=== PATIENT | female | born 1990 | race American Indian/Alaskan Native ===

== ENCOUNTER 2018-11-05 14:15 | Emergency (ER) | payer MEDICAID, OTHER ==
--- NOTE | 2018-11-05 14:52 | Emergency Department Report ---
Blank Doc - Documentation Documentation: This is a 28-year-old female that presents with pelvic pain x3 days. Stated had surgery liposuction 10 days ago. Denies pain at the incision site. Denies any nausea or vomiting. Denies any urinary symptoms. Denies any other symptoms or complaints. This initial assessment diagnostic orders/clinical plan/treatment(s) is/are subject to change based on patient's health status, clinical progression and re- assessment by fellow clinical providers in the ED. Further treatment and workup at subsequent clinical providers discretion. Patient/guardians urged not to elope from ED s their condition may be serious if not clinically assessed and managed. Initial orders include: 1-Patient sent to [facility] for further evaluation and treatment 2- labs 3- UA
[2018-11-05 15:23] LABS: Basophils % (Auto) 0.6 % (0.0-1.8); Eosinophils # (Auto) 0.4 K/mm3 (0.0-0.4); Eosinophils % (Auto) 6.4 % (0.0-4.3); Hematocrit 33.8 % (30.3-42.9); Lymphocytes # (Auto) 1.7 K/mm3 (1.2-5.4); Lymphocytes % (Auto) 24.6 % (13.4-35.0); Mean Corpuscular HGB Conc 36 % (30-34); Mean Corpuscular Volume 90 fl (79-97); Monocytes # (Auto) 0.5 K/mm3 (0.0-0.8); Monocytes % (Auto) 7.7 % (0.0-7.3); Platelet Count 380 K/mm3 (140-440); Red Blood Count 3.78 M/mm3 (3.65-5.03)
[2018-11-05 15:34] LABS: Alanine Aminotransferase 13 units/L (7-56); Albumin 3.8 g/dL (3.9-5); BUN/Creatinine Ratio 18; Blood Urea Nitrogen 9 mg/dL (7-17); Calcium 9.3 mg/dL (8.4-10.2); Hemolysis Index 52
[2018-11-05 16:25] LABS: Bacteria,Urine 3+ /HPF (Negative); Bilirubin,Urine NEG (Negative); Blood,Urine NEG (Negative); Color,Urine Yellow (Yellow); Mucus,Urine FEW /HPF; Protein,Urine <15 mg/dL mg/dL (Negative)
[2018-11-05 16:33] LABS: HCG Qualitative,Urine Negative (Negative)
[2018-11-05] MEDS ORDERED: NACL 0.9% 500 ML 500 ML IV ONE (17:37)
[2018-11-05] MEDS ORDERED: DILAUDID IV ONE (17:37)
--- NOTE | 2018-11-05 17:38 | Emergency Department Report ---
ED General Adult HPI - General Chief complaint: Abdominal Pain Stated complaint: LOWER BACK PAIN Time Seen by Provider: 11/05/18 14:49 Source: patient, RN notes reviewed Mode of arrival: Ambulatory Limitations: No Limitations - History of Present Illness Initial comments: This is a 28-year-old female who is not known to this provider previously. The patient reports no chronic medical conditions. 9 days ago, the patient had elective cosmetic lipo suction performed on her abdominal region and pelvic region, at [facility]. Patient repo rts being discharged, and has a follow-up appointment in 2 days. She reports being in her usual state of health, developed bilateral inguinal and external pelvic pain for the past 2 days. She reports this pain is sharp and swollen in nature, increases with palpation, range of motion, and decreases when lying flat. She reports her upper abdominal incisions are healing well, and did not have significant pain. She denies intravaginal pain, fevers, chills, and irritative/obstructive urinary symptoms. -: Gradual, days(s) Location: pelvis Radiation: non-radiation Severity scale (0 -10): 10 Quality: aching Consistency: intermittent Improves with: medication, rest Worsens with: movement Associated Symptoms: denies other symptoms - Related Data Home Medications Medication Instructions Recorded Confirmed Last Taken LORazepam [Ativan] 2 mg PO BID PRN 11/05/18 11/05/18 11/05/18 10:00 oxyCODONE /ACETAMINOPHEN [Percocet 1 tab PO Q6HR PRN 11/05/18 11/05/18 11/04/18 5/325] Previous Rx's Medication Instructions Recorded Last Taken Type Ibuprofen [Motrin] 600 mg PO Q8H PRN #30 tablet 11/05/18 Unknown Rx oxyCODONE /ACETAMINOPHEN [Percocet 1 tab PO Q6HR PRN #6 tablet 11/05/18 Unknown Rx 5/325] Allergies Allergy/AdvReac Type Severity Reaction Status Date / Time No Known Allergies Allergy Unverified 11/05/18 14:52 ED Review of Systems ROS: Stated complaint: LOWER BACK PAIN Other details as noted in HPI Constitutional: denies: fever, malaise Eyes: denies: vision change ENT: denies: throat pain, epistaxis Cardiovascular: denies: chest pain Gastrointestinal: abdominal pain. denies: nausea, vomiting Genitourinary: denies: dysuria Musculoskeletal: denies: back pain, arthralgia Skin: denies: lesions Neurological: denies: weakness Psychiatric: anxiety ED Past Medical Hx - Past Medical History Previous Medical History?: No - Surgical History Additional Surgical History: liposuction - Social History Smoking Status: Never Smoker Substance Use Type: None - Medications Home Medications: Home Medications Medication Instructions Recorded Confirmed Last Taken Type Ibuprofen [Motrin] 600 mg PO Q8H PRN #30 tablet 11/05/18 Unknown Rx LORazepam [Ativan] 2 mg PO BID PRN 11/05/18 11/05/18 11/05/18 10:00 History oxyCODONE /ACETAMINOPHEN [Percocet 1 tab PO Q6HR PRN 11/05/18 11/05/18 11/04/18 History 5/325] oxyCODONE /ACETAMINOPHEN [Percocet 1 tab PO Q6HR PRN #6 tablet 11/05/18 Unknown Rx 5/325] ED Physical Exam - General Limitations: No Limitations General appearance: alert, anxious, in distress - Head Head exam: Present: atraumatic, normocephalic - Eye Eye exam: Present: normal appearance, EOMI. Absent: nystagmus - ENT ENT exam: Present: normal exam, normal orophraynx, mucous membranes moist, n ormal external ear exam - Neck Neck exam: Present: normal inspection, full ROM. Absent: tenderness, meningismus - Respiratory Respiratory exam: Present: normal lung sounds bilaterally. Absent: respiratory distress - Cardiovascular Cardiovascular Exam: Present: regular rate, normal rhythm, normal heart sounds. Absent: bradycardia, irregular rhythm, systolic murmur, diastolic murmur, rubs, gallop - GI/Abdominal GI/Abdominal exam: Present: soft, tenderness, other (there is no upper abdominal tenderness. There is lower abdominal tenderness. Incisional sites appear to be healing well, with no redness, pus or streaking). Absent: distended, guarding, rebound, rigid, pulsatile mass - External exam: Present: swelling (there is bilateral inguinal and suprapubic swelling. There is induration.), other (chaperoned by JEET Lowry). Absent: erythema, lesions, lacerations, ecchymosis, bleeding - Extremities Exam Extremities exam: Present: normal inspection, full ROM, other (2+ pulses noted in the bilateral upper, lower extremities. Compartments soft. No long bony tenderness. The pelvis is stable.). Absent: pedal edema, joint swelling, calf tenderness - Back Exam Back exam: Present: normal inspection, full ROM. Absent: tenderness, paraspinal tenderness, vertebral tenderness - Neurological Exam Neurological exam: Present: alert, oriented X3, CN II-XII intact, other (Extraocular movements intact. Tongue midline. No facial droop. Facial sensation intact to light touch in the V1, V2, V3 distribution bilaterally. 5 and 5 strength in 4 extremities.. Sensation is intact to light touch in 4 extremities.). Absent: motor sensory deficit - Psychiatric Psychiatric exam: Present: normal affect, normal mood - Skin Skin exam: Present: warm, dry, intact, normal color. Absent: rash ED Course Vital Signs 11/05/18 11/05/18 14:50 19:56 Temperature 98.1 F 98.1 F Pulse Rate 87 62 Respiratory 16 18 Rate Blood Pressure 120/64 Blood Pressure 117/87 [Right] O2 Sat by Pulse 100 100 Oximetry - Reevaluation(s) Reevaluation #1: 11/05/18 18:25 Differential diagnosis, including but not limited to: Hematoma, seroma, abscess, postoperative pain Assessment and plan: 28-year-old female who is 9 days status post elective superficial cosmetic surgery, with probable seroma or hematoma. The patient is afebrile with reassuring vital signs, and the surgical sites do not appear to have redness, pus or streaking. We will treat her pain, and obtain CT scan of the abdomen pelvis. We will contact her plastic surgeon to discuss at CT scan has resulted. Reevaluation #2: 11/05/18 20:12 CT scan shows expected postsurgical changes. No acute infectious pathology is noted/identified. As a courtesy, we attempted to contact the patient's surgeon of record, but to phone numbers that were listed on line did not have an answering service. The patient has follow-up in 48 hours. She is counseled to follow up with her outpatient plastic surgeon. Belly soft on repeat exam, patient walking around without difficulty, and endorses that she feels improved. ED Medical Decision Making - Lab Data Result diagrams: 11/05/18 14:59 11/05/18 14:59 Vital Signs 11/05/18 14:50 Temperature 98.1 F Pulse Rate 87 Respiratory 16 Rate Blood Pressure 120/64 O2 Sat by Pulse 100 Oximetry Vital Signs 11/05/18 14:50 Temperature 98.1 F Pulse Rate 87 Respiratory 16 Rate Blood Pressure 120/64 O2 Sat by Pulse 100 Oximetry Lab Results 11/05/18 11/05/18 11/05/18 Range/Units 14:59 14:59 14:59 WBC 6.8 (4.5-11.0) K/mm3 RBC 3.78 (3.65-5.03) M/mm3 Hgb 12.0 (10.1-14.3) gm/dl Hct 33.8 (30.3-42.9) % MCV 90 (79-97) fl MCH 32 (28-32) pg MCHC 36 H (30-34) % RDW 13.0 L (13.2-15.2) % Plt Count 380 (140-440) K/mm3 Lymph % (Auto) 24.6 (13.4-35.0) % [place] % (Auto) 7.7 H (0.0-7.3) % Eos % (Auto) 6.4 H (0.0-4.3) % Baso % (Auto) 0.6 (0.0-1.8) % Lymph # 1.7 (1.2-5.4) K/mm3 [place] # 0.5 (0.0-0.8) K/mm3 Eos # 0.4 (0.0-0.4) K/mm3 Baso # 0.0 (0.0-0.1) K/mm3 Seg Neutrophils % 60.7 (40.0-70.0) % Seg Neutrophils # 4.1 (1.8-7.7) K/mm3 Sodium 138 (137-145) mmol/L Potassium 4.7 (3.6-5.0) mmol/L Chloride 104.0 (98-107) mmol/L Carbon Dioxide 27 (22-30) mmol/L Anion Gap 12 mmol/L BUN 9 (7-17) mg/dL Creatinine 0.5 L (0.7-1.2) mg/dL Estimated GFR > 60 ml/min BUN/Creatinine Ratio 18 % Glucose 95 (65-100) mg/dL Calcium 9.3 (8.4-10.2) mg/dL Total Bilirubin 0.30 (0.1-1.2) mg/dL AST 18 (5-40) units/L ALT 13 (7-56) units/L Alkaline Phosphatase 69 (35-129) units/L Total Creatine Kinase 61 (30-135) units/L Total Protein 6.5 (6.3-8.2) g/dL Albumin 3.8 L (3.9-5) g/dL Albumin/Globulin Ratio 1.4 % Urine Color (Yellow) Urine Turbidity (Clear) Urine pH (5.0-7.0) Ur Specific Geff (1.003-1.030) Urine Protein (Negative) mg/dL Urine Glucose (UA) (Negative) mg/dL Urine Ketones (Negative) mg/dL Urine Blood (Negative) Urine Nitrite (Negative) Urine Bilirubin (Negative) Urine Urobilinogen (<2.0) mg/dL Ur Leukocyte Esterase (Negative) Urine WBC (Auto) (0.0-6.0) /HPF Urine RBC (Auto) (0.0-6.0) /HPF U Epithel Cells (Auto) (0-13.0) /HPF Urine Bacteria (Auto) (Negative) /HPF Urine Mucus /HPF Urine HCG, Qual (Negative) 11/05/18 Range/Units Unknown WBC (4.5-11.0) K/mm3 RBC (3.65-5.03) M/mm3 Hgb (10.1-14.3) gm/dl Hct (30.3-42.9) % MCV (79-97) fl MCH (28-32) pg MCHC (30-34) % RDW (13.2-15.2) % Plt Count (140-440) K/mm3 Lymph % (Auto) (13.4-35.0) % [place] % (Auto) (0.0-7.3) % Eos % (Auto) (0.0-4.3) % Baso % (Auto) (0.0-1.8) % Lymph # (1.2-5.4) K/mm3 [place] # (0.0-0.8) K/mm3 Eos # (0.0-0.4) K/mm3 Baso # (0.0-0.1) K/mm3 Seg Neutrophils % (40.0-70.0) % Seg Neutrophils # (1.8-7.7) K/mm3 Sodium (137-145) mmol/L Potassium (3.6-5.0) mmol/L Chloride (98-107) mmol/L Carbon Dioxide (22-30) mmol/L Anion Gap mmol/L BUN (7-17) mg/dL Creatinine (0.7-1.2) mg/dL Estimated GFR ml/min BUN/Creatinine Ratio % Glucose (65-100) mg/dL Calcium (8.4-10.2) mg/dL Total Bilirubin (0.1-1.2) mg/dL AST (5-40) units/L ALT (7-56) units/L Alkaline Phosphatase (35-129) units/L Total Creatine Kinase (30-135) units/L Total Protein (6.3-8.2) g/dL Albumin (3.9-5) g/dL Albumin/Globulin Ratio % Urine Color Yellow (Yellow) Urine Turbidity Clear (Clear) Urine pH 7.0 (5.0-7.0) Ur Specific Geff 1.016 (1.003-1.030) Urine Protein <15 mg/dl (Negative) mg/dL Urine Glucose (UA) Neg (Negative) mg/dL Urine Ketones Neg (Negative) mg/dL Urine Blood Neg (Negative) Urine Nitrite Neg (Negative) Urine Bilirubin Neg (Negative) Urine Urobilinogen 4.0 (<2.0) mg/dL Ur Leukocyte Esterase Sm (Negative) Urine WBC (Auto) 12.0 H (0.0-6.0) /HPF Urine RBC (Auto) 2.0 (0.0-6.0) /HPF U Epithel Cells (Auto) 2.0 (0-13.0) /HPF Urine Bacteria (Auto) 3+ (Negative) /HPF Urine Mucus Few /HPF Urine HCG, Qual Negative (Negative) - Radiology Data Radiology results: report reviewed, image reviewed Referring Physician: MOSES HALL Patient Name: KATHERINE MENA Date of : 1990 Sex: Female Report Date: 2018-11-05 Report Status: Finalized Findings [facility] [address] [place] [address] Cat Scan Report Signed Patient: KATHERINE MENA MR#: [id number] : 1990 Acct:[id number] Age/Sex: 28 / F ADM Date: 11/05/18 Loc: ED Attending Dr: Ordering Physician: MOSES HALL MD Date of Service: 11/05/18 Procedure(s): CT abdomen pelvis w con Accession Number(s): [id number] cc: MOSES HALL MD FINAL REPORT EXAM: CT ABDOMEN PELVIS W CON HISTORY: lower abd pain s/p liposuction TECHNIQUE: CT abdomen and pelvis with intravenous contrast PRIORS: None. FINDINGS: No acute abnormality identified in the lung bases. History of views anterior abdominal wall subcutaneous edema along with small amount of subcutaneous air present. There some more focal fluid seen along the left and right lower anterior abdominal browning also likely postoperative in nature. No focal abnormality identified within the liver parenchyma. The spleen demonstrates normal size and attenuation. No pancreatic abnormalities seen. The kidneys demonstrate symmetric contrast enhancement. No evidence of hydronephrosis. The adrenal glands are unremarkable Abdominal aorta is normal in caliber. No pathologically enlarged lymph nodes are identified. No signs of free fluid or free air No evidence of small bowel dilatation. Colon is nondistended. No pericolonic inflammatory change. Urinary bladder is unremarkable. IMPRESSION: Sick cutaneous edema, small amount of subcutaneous air present with the fluid collection seen in the deeper subcutaneous soft tissues. These findings are likely postoperative in nature given history of recent liposuction. Superimposed infection is not completely excluded. Otherwise negative study Transcribed By: [facility] Dictated By: ARTURO CORDERO MD Electronically Authenticated By: ARTURO CORDERO MD Signed Date/Time: 11/05/181931 Critical care attestation.: If time is entered above; I have spent that time in minutes in the direct care of this critically ill patient, excluding procedure time. ED Disposition Clinical Impression: Lower abdominal pain Disposition: DC-01 TO HOME OR SELFCARE Is pt being admited?: No Does the pt Need Aspirin: No Condition: Good Instructions: Abdominal Pain (ED) Additional Instructions: Take the pain medications as needed/directed. Apply warm compresses to painful areas. Avoid tight fitting clothing. Follow-up with your plastic surgeon within the next 2 days. [facility] Plastic surgeon in [place], [place] Address: [address] [place] [address], [place] [address] Hours: Closed ? Opens 8:30AM Tue Return to the emergency room right away with new, worsening or different symptoms.
--- NOTE | 2018-11-05 19:32 | Cat Scan Report ---
FINAL REPORT EXAM: CT ABDOMEN PELVIS W CON HISTORY: lower abd pain s/p liposuction TECHNIQUE: CT abdomen and pelvis with intravenous contrast PRIORS: None. FINDINGS: No acute abnormality identified in the lung bases. History of views anterior abdominal wall subcutaneous edema along with small amount of subcutaneous a ir present. There some more focal fluid seen along the left and right lower anterior abdominal browning also likely postoperative in nature. No focal abnormality identified within the liver parenchyma. The spleen demonstrates normal size and attenuation. No pancreatic abnormalities seen. The kidneys demonstrate symmetric contrast enhancement. No evidence of hydronephrosis. The adrenal glands are unremarkable Abdominal aorta is normal in caliber. No pathologically enlarged lymph nodes are identified. No signs of free fluid or free air No evidence of small bowel dilatation. Colon is nondistended. No pericolonic inflammatory change. Urinary bladder is unremarkable. IMPRESSION: Sick cutaneous edema, small amount of subcutaneous air present with the fluid collection seen in the deeper subcutaneous soft tissues. These findings are likely postoperative in nature given history of recent liposuction. Superimposed infection is not completely excluded. Otherwise negative study
[2018-11-05 19:57] VITALS: BP 117/87
== END 2018-11-05 20:39 | disposition home or self-care (01) ==
LOC: ED 14:15
DX: R10.2 Pelvic and perineal pain (principal)
CPT/HCPCS: 36415; 74177; 80053; 81001; 81025; 82550; 85025; 96374; 99284; J1170; J7040; Q9967